=== PATIENT | male | born 1935 | race Caucasian/White ===

== ENCOUNTER 2017-01-08 09:24 | Observation (INO) | payer MEDICARE ==
[~2017-01-08] VITALS: Ht 177.8 cm; Wt 71.4 kg
[2017-01-08] MEDS ORDERED: PROMETHAZINE HCL INJ 12.5 MG in SODIUM CHLORIDE 25 ML IV ONE ×2 (10:05→11:20)
[2017-01-08 10:21] LABS: BASOPHILS % (AUTO) 0 % (0-2); EOSINOPHILS # (AUTO) 0.1 10^3uL; EOSINOPHILS % (AUTO) 1 % (0-4); LYMPHOCYTES # (AUTO) 1.4 X10^3; MEAN CORPUSCULAR HEMOGLOBIN 30.9 PG (26.0-34.0); MEAN CORPUSCULAR VOLUME 88 FL (80-100); MEAN PLATELET VOLUME 11.1 FL (6.0-9.5); MONOCYTES # (AUTO) 0.4 X10^3; MONOCYTES % (AUTO) 7 % (3-11); NEUTROPHILS # (AUTO) 3.9 X10^3; NEUTROPHILS % (AUTO) 67 % (51-67); PLATELET COUNT 146 10^3uL (150-450)
[2017-01-08 10:32] LABS: ANION GAP 12.6 MEQ/L (3-15); TOTAL PROTEIN 6.9 g/dL (6.4-8.5)
--- NOTE | 2017-01-08 10:38 | NUR ---
This nurse assisted pt to sit on side of bed, pt required a small amount of help to sitting position. Once pt was sitting, he became dizzy and started losing his balance in the sitting position. Pt then assisted to laying positon.
--- NOTE | 2017-01-08 10:52 | NUR ---
Pt states headache 5/10 pain that started within the last 30 minutes. MD notified.
[2017-01-08] MEDS ORDERED: SODIUM CHLORIDE 250 ML IV SCH (11:20)
--- NOTE | 2017-01-08 11:33 | NUR ---
Dependent night bag attached to urostomy bag per pt request.
--- NOTE | 2017-01-08 11:58 | NUR ---
Pt assisted to sitting position per request of MD to ambulate pt. Pt got to sitting position and became "wobbly" and dizzy. MD stated to lay pt back down and not to ambulate at this time.
[2017-01-08] MEDS ORDERED: ONDANSETRON 2 MG/ML (Z0FRAN) 2 ML VIAL IV ONE (12:00)
--- NOTE | 2017-01-08 12:05 | NUR ---
Phenergan stopped and NS run through line before zofran was administered.
[2017-01-08] MEDS ORDERED: LORazepam 2 MG/ML (ATIVAN) 1 ML VIAL IV ONE (12:25)
--- NOTE | 2017-01-08 13:40 | NUR ---
pt assisted to ambulate, pt unable to ambulate due to dizziness at this time. Dr. Deleon notified by MD for possible admission.
--- NOTE | 2017-01-08 14:00 | NUR ---
Pt states headache 2/10 pain, pt refused wanting anything for the pain at this time.
--- NOTE | 2017-01-08 14:11 | NUR ---
Lunch tray ordered per MD YUSUF and Pt request.
--- NOTE | 2017-01-08 14:14 | NUR ---
Adrienne on phone with
[2017-01-08 15:15] VITALS: BP 164/68
--- NOTE | 2017-01-08 15:15 | NUR ---
Patient arrived to room 302 via ER cart. Patient is transfered to Medical bed with assist x3. Patient is A&Ox4. Patient denies needs. Patient is able to answer all questions .
[2017-01-08] MEDS ORDERED: ACETAMINOPHEN 325 MG TAB (TYLENOL) PO PRN (15:55)
[2017-01-08] MEDS ORDERED: DOCUSATE SODIUM 100 MG (COLACE) CAP PO PRN (15:55)
[2017-01-08] MEDS ORDERED: MAGNESIUM HYDROXIDE 80MG/ML (MILK OF MAGNESIA) 30 ML UDC PO PRN (15:55)
[2017-01-08] MEDS ORDERED: CALCIUM CARBONATE CHEWABLE 300 MG (TUMS) TABLET PO PRN (15:55)
[2017-01-08] MEDS ORDERED: POLYETHYLENE GLYCOL 17 GM (MIRALAX) PACKET PO PRN (15:55)
[2017-01-08] MEDS ORDERED: MAG HYDROX/AL HYDROX/SIMETH 200-200-20/5 ML (MAG-AL PLUS) 30 ML UDC PO PRN (15:55)
[2017-01-08] MEDS ORDERED: ONDANSETRON 4 MG (ZOFRAN) ORAL DISSOLVE TAB PO PRN (15:55)
[2017-01-08] MEDS ORDERED: PROMETHAZINE HCL INJ 12.5 MG in SODIUM CHLORIDE 25 ML IV PRN (15:55)
[2017-01-08 16:38] VITALS: BP 164/68
--- NOTE | 2017-01-08 20:00 | NUR ---
Resting in bed. Alert and oriented. No discomforts voiced. Watching TV. No needs at this time. Call light within reach.
[2017-01-08] MEDS: MECLIZINE 25 MG (ANTIVERT) TABLET PO PRN (20:39)
[2017-01-08] MEDS: HYDROCHLOROTHIAZIDE 25 MG (HCTZ) TAB PO SCH (20:48)
--- NOTE | 2017-01-08 22:30 | NUR ---
Ready for sleep. Urostomy bag intact draining clear yellow urine. Patient denies any needs at this time. Call light within reach.
[2017-01-08 23:42] VITALS: BP 159/78
[2017-01-09 06:26] LABS: BASOPHILS % (AUTO) 0 % (0-2); EOSINOPHILS # (AUTO) 0.2 10^3uL; EOSINOPHILS % (AUTO) 3 % (0-4); LYMPHOCYTES # (AUTO) 2.3 X10^3; MEAN CORPUSCULAR HGB CONC 34.5 g/dL (31.0-37.0); MEAN CORPUSCULAR VOLUME 90 FL (80-100); MEAN PLATELET VOLUME 11.4 FL (6.0-9.5); MONOCYTES # (AUTO) 0.6 X10^3; MONOCYTES % (AUTO) 9 % (3-11); NEUTROPHILS # (AUTO) 3.4 X10^3; NEUTROPHILS % (AUTO) 53 % (51-67); PLATELET COUNT 158 10^3uL (150-450); WHITE BLOOD COUNT 6.46 10^3uL (4.0-11.0)
[2017-01-09 06:58] LABS: ALBUMIN 3.6 g/dL (3.4-5.0); ANION GAP 12.4 MEQ/L (3-15); PHOSPHORUS 3.3 mg/dL (2.4-4.9)
--- NOTE | 2017-01-09 07:30 | NUR ---
Patient rested well tonight. No further concerns with dizzy spells. Had meclizine at HS. Urostomy bag remains intact and drains yellow urine. Call light within reach.
[2017-01-09 08:00] VITALS: BP 135/75
--- NOTE | 2017-01-09 08:25 | NUR ---
NUTRITION ASSESSMENT Level 1 Patient: Zach Forman Age/Sex: 81/M Date Screened: [birth year]09[birth year]17 Weight: 157#/71.4 kg Height: 70 inches Primary Diagnosis: dizziness Diet Order: regular Relevant labs: glucose 87 Food allergies: N Nutrition Assessment Criteria Age over 80: 4 points Body Mass Index (BMI) under 19: N Admission Screening Indicates Risk? N Moderate/High Risk Diagnosis: N TPN or PPN: N NPO or clear liquid diet: N Serum Glucose <70 or >180: N Hgb A1c >6.7: N/A Total: 4 points Risk Screen: __ Patient at low nutritional risk based on available data; reevaluate in 5-7 days _X_ Patient at moderate nutritional risk based on available data; reevaluate in 3-5 days __ Patient at high nutritional risk; complete Nutrition Assessment within 48 hours of admission. Comments: Weight has been stable (last documented at 160# in 2015). Pt. reports good appetite, no GI concerns other than some nausea with dizziness. Will reassess as documented above.
[2017-01-09] MEDS: ENOXAPARIN 40 MG/0.4 ML (LOVENOX) SYR SC SCH (08:33)
[2017-01-09] MEDS: HYDROCHLOROTHIAZIDE 25 MG (HCTZ) TAB PO SCH (08:33)
[2017-01-09] MEDS: MULTIVITAMIN W/MINERALS (THERAGRAN M) TABLET PO SCH (08:33)
--- NOTE | 2017-01-09 08:45 | NUR ---
Pt states he continues to be a little dizzy. Antivert po given for dizziness.
[2017-01-09] MEDS: MECLIZINE 25 MG (ANTIVERT) TABLET PO PRN ×2 (08:53→16:45)
[2017-01-09] MEDS ORDERED: MULTIVITAMIN PO SCH (09:00)
--- NOTE | 2017-01-09 10:55 | NUR ---
Pt continues to be dizzy, having a difficult time standing. Pt changed urostomy bag with assist of this nurse.
--- NOTE | 2017-01-09 12:23 | NUR ---
MED REC COMPLETED-current med list obtained from patient interview. Conducted by Denise Sanders, PharmD Candidate 2017.
--- NOTE | 2017-01-09 12:35 | NUR ---
Pt c/o pain 05/10, Tylenol tabs x 2 given. Pt states pain is in the back of his head.
--- NOTE | 2017-01-09 14:49 | NUR ---
Pt ambulated up and down the moise, with stand by assist, walker and gait belt. Pt states he still has a pain in the back of head.
[2017-01-09 15:30] VITALS: BP 144/75
--- NOTE | 2017-01-09 16:45 | NUR ---
Meclizine po given for vertigo. Pt requested Colace for constipation. Pt had family visiting most of afternoon.
--- NOTE | 2017-01-09 20:00 | NUR ---
Patient up to bathroom. Trying to have BM. Is alert and oriented. Urostomy bag emptied. UA obtained from Urostomy bag that waas emptied first. Then new sample obtained and taken to lab. Denies any discomforts. No dizziness noted. Is unsteady at times. Call light within reach.
[2017-01-09 20:21] LABS: BILIRUBIN,URINE Negative (Negative); COLOR,URINE Yellow; GLUCOSE, URINE (UA) Negative (Negative); LEUKOCYTE ESTERASE ,URINE 1+ (Negative); UROBILINOGEN,URINE 0.2 mg/dL (0.2-1.0)
[2017-01-09 21:06] LABS: CLARITY,URINE Slightly Cloudy
[2017-01-09 21:09] LABS: RBC,URINE 0-2 /HPF; URINE CENTRIFUGED VOLUME 12 mL
--- NOTE | 2017-01-09 23:11 | NUR ---
Resting with eyes closed. Urostomy bad to dependant drainage. Urine yellow with sediment. Patient denies any discomforts or needs at this time. Call light within reach.
[2017-01-10 00:25] VITALS: BP 114/66
--- NOTE | 2017-01-10 05:08 | NUR ---
Pt has been resting in bed asleep the majority of this shift, has not complained of pain or discomfort. Call light is in reach, will continue to monitor.
[2017-01-10 07:46] VITALS: BP_SYST 123; BP_SYST 130; BP_DIAS 44; BP_DIAS 69
[2017-01-10] MEDS: ENOXAPARIN 40 MG/0.4 ML (LOVENOX) SYR SC SCH (08:19)
[2017-01-10] MEDS: MULTIVITAMIN W/MINERALS (THERAGRAN M) TABLET PO SCH (08:19)
[2017-01-10] MEDS: HYDROCHLOROTHIAZIDE 25 MG (HCTZ) TAB PO SCH (08:19)
--- NOTE | 2017-01-10 11:05 | NUR ---
Patient's IV site discontinued with tip intact. Patient's discharge instructions reviewed. Patient verbalizes written and verbal understanding.
--- NOTE | 2017-01-10 11:22 | NUR ---
Visited with Pt. daughter Marianela regarding Pt. discharge plans. She reported her plan is for their mother to go to [facility] and they would like for him to go also at least for a few days for some respite. She asked SW to visit with Pt. about this and report back to her. PATRICIA agreed to do so. PATRICIA visited with Pt. He said they are looking at a couple places for his to go to. He said he is agreeable to staying for a few days at whatever facility they agree upon to help make her transition easier but he is not ready to move. PATRICIA reported back to Pt. daughter. She plans on calling and talking with Pt. PATRICIA also presented the [facility] form to Pt. Pt. signed the form and PATRICIA gave Pt. a copy and placed the original in the chart.
--- NOTE | 2017-01-10 12:07 | NUR ---
Patient discharged to private vehicle accompanied by RN and son-in-law. Reports he can not find wallet in his pants where he had it when he transferred from the EMS cart to the ER bed. No wallet found in lock box, ER room, med/surg room, or in possession bags. Patient will notify staff after he returns home if he is unable to locate wallet. No further needs.
== END 2017-01-10 12:05 | disposition home or self-care (01) ==
LOC: EDUNIT# 09:24 → ED 09:26 → MED/SURG 14:26 → INTOOBSV 14:26
PROVIDERS: ADMIT Internal Medicine; ATTEND Internal Medicine
DX: R42 Dizziness and giddiness (principal); R11.0 Nausea; I10 Essential (primary) hypertension; Z93.6 Other artificial openings of urinary tract status; Z85.038 Personal history of other malignant neoplasm of large intestine; Z85.51 Personal history of malignant neoplasm of bladder; Z87.891 Personal history of nicotine dependence; Z85.46 Personal history of malignant neoplasm of prostate
CPT/HCPCS: 36415; 70450; 80053; 80069; 81003; 81015; 85025; 87077; 87088; 87186; 93005; 96365; 96366; 96372; 96375; 99285; A9270; G0378; J1650; J2060; J2405; J2550; J7050; 93010; 99218

== ENCOUNTER → 2017-01-08 | Outpatient (CLI) | payer MEDICARE | LOC: EMS 09:10 | PROVIDERS: ATTEND Emergency Medicine | DX: R42 Dizziness and giddiness (principal); M54.2 Cervicalgia ==

== ENCOUNTER → 2017-02-03 | Outpatient (CLI) | payer MEDICARE ==
[2017-02-03 10:04] LABS: ANION GAP 13.8 MEQ/L (3-15)
== END ==
LOC: LAB 09:25
PROVIDERS: ATTEND Urology
DX: C67.8 Malignant neoplasm of overlapping sites of bladder (principal)
CPT/HCPCS: 36415; 80048